=== PATIENT | female | born 1990 | race Caucasian/White ===

== ENCOUNTER 2022-05-20 19:43 | Emergency (ER) | payer MEDICAID ==
[2022-05-20] MEDS ORDERED: Sodium Chloride 0.9% 10 ML Syringe FLUSH PRN (19:46)
[2022-05-20] MEDS ORDERED: Diazepam 5 MG Tab PO ONE (20:41)
[2022-05-20 20:59] LABS: ESTIMATED GFR 117 mL/min (>60)
[2022-05-20] MEDS ORDERED: Calcium Carbonate/Vitamin D3 1500 MG-400 Units Tab PO STA (21:09)
[2022-05-20] MEDS ORDERED: Potassium Chloride 20 MEQ Tab.ER PO ONE (21:09)
[2022-05-20] MEDS ORDERED: Ibuprofen 600 MG Tab PO ONE (22:02)
== END 2022-05-20 23:18 ==
LOC: JP.ED 19:43
DX: F10.930 Alcohol use, unspecified with withdrawal, uncomplicated (principal); E87.6 Hypokalemia; E83.51 Hypocalcemia; Z88.8 Allergy status to other drugs, medicaments and biological substances; Z79.899 Other long term (current) drug therapy
CPT/HCPCS: 36415; 70450; 80053; 80307; 82803; 85025; 99285; A9270

== ENCOUNTER 2022-05-22 13:59 | Emergency (ER) | payer MEDICAID ==
[2022-05-22] MEDS ORDERED: Sodium Chloride 0.9% 10 ML Syringe FLUSH PRN (14:35)
[2022-05-22] MEDS ORDERED: LORazepam 2 MG/ML SDV IVPUSH ONE (14:35)
[2022-05-22] MEDS ORDERED: Ketorolac 30 MG/ML SDV IVPUSH ONE (14:35)
[2022-05-22] MEDS ORDERED: Ondansetron 4 MG/2 ML SDV IVPUSH ONE (15:27)
== END 2022-05-22 17:27 ==
LOC: JP.ED 13:59
DX: F10.930 Alcohol use, unspecified with withdrawal, uncomplicated (principal); Z79.899 Other long term (current) drug therapy; Z88.8 Allergy status to other drugs, medicaments and biological substances; Z90.49 Acquired absence of other specified parts of digestive tract
CPT/HCPCS: 36415; 80048; 83605; 85025; 96374; 96375; 99285; J1885; J2060; J2405; J3490

== ENCOUNTER 2022-05-26 12:46 | Emergency (ER) | payer MEDICAID ==
[2022-05-26] MEDS ORDERED: Sodium Chloride 0.9% 10 ML Syringe FLUSH PRN (12:54)
[2022-05-26] MEDS ORDERED: Ondansetron 4 MG Tab.DIS PO ONE (13:26)
[2022-05-26] MEDS ORDERED: Ketorolac 30 MG/ML SDV IVPUSH ONE (13:27)
[2022-05-26] MEDS ORDERED: Prochlorperazine 10 MG/2 ML SDV IVPUSH ONE (13:27)
== END 2022-05-26 14:12 ==
LOC: JP.ED 12:46
DX: F10.930 Alcohol use, unspecified with withdrawal, uncomplicated (principal); Z88.5 Allergy status to narcotic agent
CPT/HCPCS: 36415; 70450; 80048; 82947; 83735; 85025; 96374; 96375; 99285; J0780; J1885; J3490

== ENCOUNTER 2023-02-16 08:11 | Emergency (ER) | payer MEDICAID ==
[2023-02-16 08:45] LABS: BASOPHILS ABSOLUTE AUTO 0.03 K/uL (0.00-0.10); BASOPHILS PERCENT AUTO 0.4 % (0.1-1.3); EOSINOPHILS ABSOLUTE AUTO 0.27 K/uL (0.00-0.40); EOSINOPHILS PERCENT AUTO 3.9 % (0.0-5.4); HEMATOCRIT 32.9 % (34.3-46.0); HEMOGLOBIN 11.1 g/dL (11.2-15.5); IMMATURE GRAN PERCENT AUTO 0.3 % (0.0-0.7); LYMPHOCYTES ABSOLUTE AUTO 2.22 K/uL (0.8-3.3); LYMPHOCYTES PERCENT AUTO 32.3 % (11.4-47.7); MEAN CORPUSCULAR HEMOGLOBIN 30.2 pg (31.6-35.5); MEAN CORPUSCULAR HGB CONC 33.7 g/dL (31.6-35.5); MEAN CORPUSCULAR VOLUME 89.4 fL (81.4-99.0); MONOCYTES ABSOLUTE AUTO 0.36 K/uL (0.20-0.90); MONOCYTES PERCENT AUTO 5.2 % (3.3-12.6); NEUTROPHILS ABSOLUTE AUTO 3.97 K/uL (1.0-7.6); NEUTROPHILS PERCENT AUTO 57.9 % (40.0-78.1); RED BLOOD CELL COUNT 3.68 M/uL (3.77-5.24); WHITE BLOOD CELL COUNT,WBC 6.9 K/uL (3.2-11.0)
[2023-02-16 08:52] LABS: APPEARANCE,URINE CLEAR (CLEAR); BILIRUBIN,URINE NEGATIVE (NEGATIVE); COLOR,URINE YELLOW (YELLOW); GLUCOSE,URINE NEGATIVE (NEGATIVE); KETONES,URINE NEGATIVE (NEGATIVE); LEUKOCYTE ESTERASE,URINE NEGATIVE (NEGATIVE); NITRITE,URINE NEGATIVE (NEGATIVE); OCCULT BLOOD,URINE SMALL (NEGATIVE); PH,URINE 8.5 (5.0-8.0); PROTEIN,URINE NEGATIVE (NEGATIVE); UROBILINOGEN,URINE 0.2 EU/dL (0.2-1.0)
[2023-02-16 09:01] LABS: AMORPHOUS SEDIMENT,URINE NOT SEEN; BACTERIA,URINE MANY; EPITHELIAL CELLS,URINE RARE; MUCUS,URINE NOT SEEN; RBC,URINE 0-5 (0-5); WBC,URINE 0-5 (0-5)
[2023-02-16 09:09] LABS: A/G RATIO 0.9 (1.2-2.2); ALANINE AMINOTRANSFERASE,ALT 28 U/L (12-78); ALBUMIN 3.1 g/dL (3.4-5.0); ALKALINE PHOSPHATASE 80 U/L (46-116); ASPARTATE AMNIOTRANSFERASE,AST 39 U/L (15-37); BILIRUBIN TOTAL 0.4 mg/dL (0.2-1.0); BLOOD UREA NITROGEN,BUN 1 mg/dL (7-18); C-REACTIVE PROTEIN 0.41 mg/dL (0.0-0.3); CALCIUM 8.3 mg/dL (8.5-10.1); CARBON DIOXIDE,CO2 25 mmol/L (21-32); CHLORIDE,CL 99 mmol/L (100-108); CREATININE 0.6 mg/dL (0.6-1.0); EST CRCL DRUG DOSING (CG) 113.52 mL/min; ESTIMATED GFR 121 mL/min (>60); GLUCOSE RANDOM 92 mg/dL (74-106); MAGNESIUM 2.2 mg/dL (1.8-2.4); POTASSIUM,K 3.5 mmol/L (3.6-5.2); PROTEIN TOTAL,TP 6.5 g/dL (6.4-8.2); SODIUM,NA 132 mmol/L (140-148)
[2023-02-16 09:10] LABS: ANION GAP 11.5 mmol/L (5.0-14.0)
[2023-02-16 09:28] LABS: IMMATURE GRAN ABSOLUTE AUTO 0.02 K/uL (0.00-0.23)
[2023-02-16 09:29] LABS: PLATELET COUNT,PLT 260 K/uL (130-375)
== END 2023-02-16 10:25 | disposition other institution (70) ==
LOC: JP.ED 08:11
DX: F10.239 Alcohol dependence with withdrawal, unspecified (principal); Z79.899 Other long term (current) drug therapy; Z88.8 Allergy status to other drugs, medicaments and biological substances
CPT/HCPCS: 36415; 80053; 81001; 82140; 83735; 85025; 86140; 99284; 99285

== ENCOUNTER 2024-11-15 08:35 | Emergency (ER) | payer MEDICAID ==
[2024-11-15] MEDS: lamoTRIgine 25 MG Tab PO ONE (09:33)
[2024-11-15] MEDS: diazePAM 5 MG Tab PO ONE (09:33)
[2024-11-15] MEDS: Ondansetron 4 MG Tab.DIS PO ONE (09:53)
[2024-11-15] MEDS: Acetaminophen 500 MG Tab PO ONE (09:53)
== END 2024-11-15 11:17 | disposition home or self-care (01) ==
LOC: JP.ED 08:35
DX: F10.930 Alcohol use, unspecified with withdrawal, uncomplicated (principal); Z88.8 Allergy status to other drugs, medicaments and biological substances; Z91.013 Allergy to seafood; Z79.899 Other long term (current) drug therapy; Z90.49 Acquired absence of other specified parts of digestive tract
CPT/HCPCS: 99284; A9270; Q0162

== ENCOUNTER 2024-11-16 12:38 | Emergency (ER) | payer MEDICAID ==
[2024-11-16] MEDS: Sodium Chloride 0.9% 1,000 ML IV ONE (13:08)
[2024-11-16] MEDS: lamoTRIgine 100 MG Tab PO ONE (13:09)
[2024-11-20 00:57] LABS: LAMOTRIGINE 8.3 ug/mL (3.0-15.0)
== END 2024-11-16 15:15 | disposition home or self-care (01) ==
LOC: JP.ED 12:38
DX: R56.9 Unspecified convulsions (principal); Z79.899 Other long term (current) drug therapy; Z91.013 Allergy to seafood; Z88.8 Allergy status to other drugs, medicaments and biological substances
CPT/HCPCS: 80175; 96360; 99284; A9270; J7030

== ENCOUNTER 2024-11-20 17:10 | Emergency (ER) | payer MEDICAID ==
[2024-11-20 18:46] LABS: BASOPHILS ABSOLUTE AUTO 0.04 K/uL (0.00-0.10); BASOPHILS PERCENT AUTO 0.6 % (0.1-1.3); EOSINOPHILS ABSOLUTE AUTO 0.09 K/uL (0.00-0.40); EOSINOPHILS PERCENT AUTO 1.4 % (0.0-5.4); HEMATOCRIT 34.7 % (34.3-46.0); IMMATURE GRAN PERCENT AUTO 0.3 % (0.0-0.7); LYMPHOCYTES ABSOLUTE AUTO 2.07 K/uL (0.8-3.3); LYMPHOCYTES PERCENT AUTO 32.6 % (11.4-47.7); MEAN CORPUSCULAR HEMOGLOBIN 27.2 pg (31.6-35.5); MEAN CORPUSCULAR HGB CONC 31.7 g/dL (31.6-35.5); MEAN CORPUSCULAR VOLUME 85.7 fL (81.4-99.0); MONOCYTES ABSOLUTE AUTO 0.48 K/uL (0.20-0.90); MONOCYTES PERCENT AUTO 7.6 % (3.3-12.6); NEUTROPHILS ABSOLUTE AUTO 3.65 K/uL (1.0-7.6); NEUTROPHILS PERCENT AUTO 57.5 % (40.0-78.1); PLATELET COUNT,PLT 297 K/uL (130-375); RED BLOOD CELL COUNT 4.05 M/uL (3.77-5.24); WHITE BLOOD CELL COUNT,WBC 6.4 K/uL (3.2-11.0)
[2024-11-20 18:49] LABS: IMMATURE GRAN ABSOLUTE AUTO 0.02 K/uL (0.00-0.23)
[2024-11-20 19:17] LABS: ALANINE AMINOTRANSFERASE,ALT 25 U/L (12-78); ALBUMIN 3.5 g/dL (3.4-5.0); ALKALINE PHOSPHATASE 118 U/L (46-116); ASPARTATE AMNIOTRANSFERASE,AST 15 U/L (15-37); BILIRUBIN TOTAL 0.3 mg/dL (0.2-1.0); BLOOD UREA NITROGEN,BUN 4 mg/dL (7-18); CALCIUM 9.2 mg/dL (8.5-10.1); CARBON DIOXIDE,CO2 27 mmol/L (21-32); CHLORIDE,CL 101 mmol/L (100-108); CREATININE 0.8 mg/dL (0.6-1.0); EST CRCL DRUG DOSING (CG) 83.95 mL/min; ESTIMATED GFR 98 mL/min (>60); GLUCOSE RANDOM 95 mg/dL (74-106); POTASSIUM,K 3.8 mmol/L (3.6-5.2); PROTEIN TOTAL,TP 7.2 g/dL (6.4-8.2); SODIUM,NA 138 mmol/L (140-148); TSH ULTRASENSITIVE 3.317 uIU/mL (0.358-3.740)
[2024-11-20 19:18] LABS: ANION GAP 13.8 mmol/L (5.0-14.0)
[2024-11-20 19:20] LABS: AMPHETAMINES SCREEN, URINE NEGATIVE (NEGATIVE); BARBITURATE SCREEN,URINE NEGATIVE (NEGATIVE); BENZODIAZEPINES SCREEN,URINE PRESUMPTIVE POSITIVE (NEGATIVE); METHADONE SCREEN, URINE NEGATIVE (NEGATIVE); METHAMPHETAMINES SCREEN, URINE NEGATIVE (NEGATIVE); OXYCODONE SCREEN,URINE NEGATIVE (NEGATIVE); PROPOXYPHENE SCREEN,URINE NEGATIVE (NEGATIVE); THC SCREEN,URINE 50 NG/ML NEGATIVE (NEGATIVE)
[2024-11-20] MEDS: droPERidol 5 MG/2 ML SDV IVPUSH ONE (19:29)
[2024-11-20] MEDS: LORazepam 2 MG/ML SDV IVPUSH ONE (19:29)
[2024-11-20] MEDS: diphenhydrAMINE 50 MG/ML SDV IVPUSH ONE (19:29)
[2024-11-21] MEDS: LORazepam 1 MG Tab PO ONE ×3 (01:24→17:07)
[2024-11-21] MEDS: Ondansetron 4 MG Tab.DIS PO ONE (05:44)
== END 2024-11-21 17:25 | disposition other institution (70) ==
LOC: JP.ED 17:10
DX: F10.930 Alcohol use, unspecified with withdrawal, uncomplicated (principal); R56.9 Unspecified convulsions; Z90.49 Acquired absence of other specified parts of digestive tract; Z91.013 Allergy to seafood; Z79.899 Other long term (current) drug therapy; Y90.0 Blood alcohol level of less than 20 mg/100 ml
CPT/HCPCS: 36415; 80053; 80305; 80307; 84443; 85025; 96374; 96375; 99284; 99285; A9270; J1200; J1790; J2060; Q0162